=== PATIENT | female | born 1940 | race Hispanic/Latino ===

== ENCOUNTER 2017-03-15 09:51 | Outpatient (CLI) | payer MEDICARE, OTHER ==
--- NOTE | 2017-03-15 13:59 | Mammography Report ---
Bilateral digital screening mammogram with CAD. Comparison studies from January 2016 and January 2015 were used. Findings: The overall clinical pattern is stable with areas of minimal peripheral asymmetry seen in the upper-outer right breast and in the posterior left breast. These demonstrate no suspicious secondary signs. Minimal postsurgical changes in the right breast are stable. No suspicious calcifications are seen. Impression: Stable benign findings. BI-RADS code: 2. Recommendation: Annual screening.
--- NOTE | 2017-03-15 14:02 | Mammography Report ---
BONE DENSITY STUDY: DEFINITIONS: BMD = Bone Mineral Density T-score = BMD related to mean peak bone mass of young adult (mean expressed in Standard Deviation) Z-score = Age matched BMD expressed in SD World Health Organization (WHO) Diagnostic Criteria Normal T-score > -1 SD Osteopenia T-score between -1 and -2.4 SD Osteoporosis T-score -2.5 SD or below FINDINGS: The weighted average BMD of lumbar spine L1-L4 is 0.746 with a T-score of -2.7. Comparison to the previous study on February 05, 2015 demonstrates an interval change of 0.8%. The weighted average BMD of hip is 0.549 with a T-score of -3.2. Interval change is 0.8% IMPRESSION: The patient's T-score is diagnostic for osteoporosis and high relative risk for fracture. NOTE: BMD is not the only risk factor for fracture; also consider factors such as the patient's age, risk of falling, previous osteoporotic fracture, family history of osteoporotic fractures, current smoker, and low body weight. Cameron's triangle is a region of interest in femur, predominantly of trabecular bone. It is not a true anatomic site, and [facility] does not recommend its use clinically.
== END 2017-03-15 09:52 | disposition home or self-care (01) ==
LOC: MAMMO 09:51
PROVIDERS: ATTEND Internal Medicine
DX: Z12.31 Encounter for screening mammogram for malignant neoplasm of breast (principal); M81.0 Age-related osteoporosis without current pathological fracture
CPT/HCPCS: 77080; G0202; 77067

== ENCOUNTER 2018-07-25 11:00 | Outpatient (CLI) | payer MEDICARE, OTHER ==
--- NOTE | 2018-07-26 10:51 | Mammography Report ---
BILATERAL DIGITAL SCREENING MAMMOGRAM with CAD : 07/25/18 11:00:00 CLINICAL: Routine screening. COMPARISON:03/15/17 FINDINGS: The breasts are heterogeneously dense, which may obscure small masses.The fibroglandular pattern is stable stable left upper parenchymal asymmetry. Stable right benign scar from a benign biopsy. No mass, suspicious architectural distortion or suspicious calcifications. IMPRESSION: No mammographic evidence of malignancy. BI-RADS CATEGORY: 2 -- Benign RECOMMENDATION: Routine mammographic screening in one year. COMMENT: Patient follow-up letters are generated by our [employer] application.
== END 2018-07-25 11:01 | disposition home or self-care (01) ==
LOC: MAMMO 11:00
PROVIDERS: ATTEND Internal Medicine Hematology & Oncology
DX: Z12.31 Encounter for screening mammogram for malignant neoplasm of breast (principal)
CPT/HCPCS: 77067

== ENCOUNTER 2019-08-14 08:44 | Outpatient (CLI) | payer MEDICARE, OTHER ==
--- NOTE | 2019-08-15 16:05 | Mammography Report ---
DIGITAL SCREENING MAMMOGRAM WITH CAD, 08/14/2019 INDICATION: Routine screening mammography. TECHNIQUE: Digital bilateral 2D mammography was obtained in the craniocaudal and mediolateral obliq ue projections. This examination was interpreted with the benefit of Computer-Aided Detection analysi s. COMPARISON: 07/25/2018 and 02/12/2016 FINDINGS: Breast Density: The breasts are heterogeneously dense, which may obscure small masses. There is no evidence of dominant mass, suspicious calcifications or architectural distortion in eithe r breast. A left upper parenchymal asymmetry is unchanged compared to previous exams. IMPRESSION: No mammographic evidence of malignancy. Follow up recommendation: Routine yearly BI-RADS Category 2: Benign. A "normal" or negative report should not discourage follow up or biopsy of a clinically significant f inding. A written summary of these findings will be mailed to the patient. The patient will be entered into a mammography reporting system which will generate a reminder letter for the patient's next appointmen t at the appropriate interval. The [employer] recommends yearly mammograms starting at age 40 and continuing as l edith as a woman is in good health. Breast MRI is recommended for women with an approximate 20-25% or greater lifetime risk of breast cancer, including women with a strong family history of breast or ova colin cancer or who have been treated for Hodgkin's disease. Signer Name: Franck Jerome MD Signed: 08/15/2019 4:00 PM Workstation Name: [id number]
--- NOTE | 2019-08-16 08:29 | Mammography Report ---
BONE DEXA CLINICAL: Postmenopausal. COMPARISON: 03/15/2017, 02/05/2015 and 05/01/2012 TECHNIQUE: 2 site bone DEXA performed on an Hologic scanner. FINDINGS: The average BMD of the lumbar spine L1-L4 is 0.761g/cm squared with a T score of -2.6 and a Z score o f +0.1. This compares to 0.746g/cm squared on the last exam and represents a +2.0 % change from the l ast study and a +2.3% change from [baseline]. The average BMD of the left hip is 0.536 g/cm squared with a T score of -3.3and a Z score of -1.3. Th is compares to 0.549 g/cm squared on the last exam and represents a -2.4 % change from the last study and a -9.1% change [from baseline]. IMPRESSION: 1. WHO classification: Osteoporosis with high fracture risk based on spine measurements. 2. WHO classification Osteoporosis with high fracture risk based on left hip measurements. 3. A modest improvement in spine BMD and a modest decline in left hip BMD compared to the last exam. RECOMMENDATION: Clinical correlation and routine screening. Definitions: BMD equal bone mineral density T score = BMD related to peak bone mass of young adult ([place] expressed an standard deviation) Z score = age-matched BMD expressed in SD World health organization (WHO) diagnostic criteria Normal T score greater than equal to 1 standard deviation Osteopenia T score between -1 and -2.4 standard deviation Osteoporosis T score -2.5 standard deviation or below. Note: BMD is not the only risk factor for fracture; also consider factors such as the patient's age, risk of falling, previous osteoporotic fracture, family history of osteoporotic fractures, current sm oker and low body weight. Z scores are not calculated if greater than 80 years of age. Signer Name: Franck Jerome MD Signed: 08/16/2019 8:25 AM Workstation Name: [id number]
== END 2019-08-14 08:45 | disposition home or self-care (01) ==
LOC: MAMMO 08:44
PROVIDERS: ATTEND Internal Medicine
DX: Z12.31 Encounter for screening mammogram for malignant neoplasm of breast (principal); Z78.0 Asymptomatic menopausal state
CPT/HCPCS: 77067; 77080

== ENCOUNTER 2020-12-10 09:57 | Outpatient (CLI) | payer MEDICARE, OTHER ==
--- NOTE | 2020-12-10 11:42 | Mammography Report ---
DIGITAL SCREENING MAMMOGRAM WITH CAD, 12/10/2020 CLINICAL INFORMATION / INDICATION: Routine screening mammography. TECHNIQUE: Digital bilateral 2D mammography was obtained in the craniocaudal and mediolateral obliqu e projections. This examination was interpreted with the benefit of Computer-Aided Detection analysis . COMPARISON: 08/14/2019, 07/25/2018, 03/15/2017 FINDINGS: Breast Density: There are scattered areas of fibroglandular density. No dominant mass, suspicious calcifications, or architectural distortion in either breast. IMPRESSION: No mammographic evidence of malignancy. Follow up recommendation: Routine yearly BI-RADS Category 1: Negative. A "normal" or negative report should not discourage follow up or biopsy of a clinically significant f inding. A written summary of these findings will be mailed to the patient. The patient will be entered into a mammography reporting system which will generate a reminder letter for the patient's next appointmen t at the appropriate interval. The [employer] recommends yearly mammograms starting at age 40 and continuing as l edith as a woman is in good health. Breast MRI is recommended for women with an approximate 20-25% or greater lifetime risk of breast cancer, including women with a strong family history of breast or ova colin cancer or who have been treated for Hodgkin's disease. Signer Name: Mary Grace Carson MD Signed: 12/10/2020 11:38 AM Workstation Name: [id number]
== END 2020-12-10 09:58 | disposition home or self-care (01) ==
LOC: MAMMO 09:57
PROVIDERS: ATTEND Internal Medicine
DX: Z12.31 Encounter for screening mammogram for malignant neoplasm of breast (principal)
CPT/HCPCS: 77067